=== PATIENT | female | born 1985 | race Caucasian/White ===

== ENCOUNTER 2021-07-18 02:05 | Emergency (ER) | payer BC, SELFPAY ==
[2021-07-18 02:08] VITALS: BP 145/83; PULSE 73; RESP 15; TEMP 36.6; O2SAT 99; BMI 40.7
--- NOTE | 2021-07-18 02:13 | DI.RAD.S_ITS ---
PROCEDURE: XR CHEST 1V INDICATIONS: Shortness of breath TECHNIQUE: One view of the chest was acquired. COMPARISON: None. FINDINGS: Surgical changes and devices: None. Lungs and pleura: Lungs are clear. No pleural effusions or pneumothorax. Mediastinum: Mediastinal contours appear normal. Heart size is normal. Bones and chest wall: No suspicious bony lesions. Overlying soft tissues appear unremarkable. IMPRESSION: No acute cardiopulmonary disease process. Dictated by: Nadine Calhoun MD, PhD on 07/18/2021 at 8:41 Approved by: Nadine Calhoun MD, PhD on 07/18/2021 at 8:41
--- NOTE | 2021-07-18 02:15 | ED.GENADULT ---
HPI - General Adult General Chief complaint: Upper Respiratory Symptoms Stated complaint: shortness of breath Time Seen by Provider: 07/18/21 02:06 Source: patient Mode of arrival: EMS History of Present Illness HPI narrative: Patient is a 35-year-old female. She states that over the weekend she had diarrhea and nausea and vomiting. It seems to have improved and she has been tolerating oral intake but she has also now developed some shortness of breath and feeling ?out of it ?and some chest discomfort. No abdominal pain. She also endorses fevers. Related Data Home Medications Medication Instructions Recorded Confirmed levothyroxine 50 mcg tablet 50 mcg PO DAILY 06/01/18 06/01/18 levothyroxine 50 mcg tablet 100 mcg PO DAILY 06/01/18 06/01/18 Previous Rx's Medication Instructions Recorded azithromycin 250 mg tablet See Rx Instructions PO .COMPLEX #6 06/01/18 tab Allergies Allergy/AdvReac Type Severity Reaction Status Date / Time No Known Drug Allergies Allergy Verified 07/18/21 02:12 Review of Systems Constitutional Constitutional: Reports as per HPI Cardiovascular Cardiovascular: Reports as per HPI and Reports system reviewed and no additional complaints, except as documented Respiratory Respiratory: Reports as per HPI and Reports system reviewed and no additional complaints, except as documented Gastrointestinal Gastrointestinal: Reports as per HPI and Reports system reviewed and no additional complaints, except as documented Integumentary/Breasts Skin/Breast: Reports system reviewed and no additional complaints, except as documented Neurologic Neurologic: Reports system reviewed and no additional complaints, except as documented Hematologic/Lymphatic On Anticoagulants: No Patient History Medical History Hypothyroidism Social History Smoking Status: Never smoker Smoking Status: Never smoker alcohol intake frequency: 0-2 drinks per day Exam Initial Vital Signs Initial Vital Signs: Vital Signs Temperature 97.8 F 07/18/21 02:08 Pulse Rate 73 07/18/21 02:08 Respiratory Rate 15 07/18/21 02:08 Blood Pressure 145/83 H 07/18/21 02:08 Pulse Oximetry 99 07/18/21 02:08 HENMT Head: normal to inspection and normocephalic Resp Effort & Inspection: normal respiratory effort Auscultation: clear to auscultation bilaterally Cardio Rate: regular rate Rhythm: regular rhythm GI Inspection: normal to inspection Skin General: no rashes or lesions noted Neuro General: patient alert, patient awake and patient oriented x3 Extrem General: normal to inspection and capillary refill normal Psych Appearance: grossly normal and well kempt Course Orders Ordered: ED Orders 07/18/21 02:08 COVID19 -Nasal swab/Pre-Proc Stat 07/18/21 02:13 XR chest 1V Stat EKG-12 Lead Stat 07/18/21 02:45 Basic Metabolic Panel Stat Complete Blood Count AUTO DIFF Stat Test Serum,Qual Stat Thyroid Stimulating Hormone Stat Discontinued Medications Sodium Chloride (Normal Saline 0.9%) 1,000 mls @ 1,000 mls/hr IV BOLUS ONE Stop: 07/18/21 03:11 Last Admin: 07/18/21 02:51 Dose: 1,000 mls/hr Documented by: NICOLETTE Vital Signs Vital signs: Vital Signs - 8 hr 07/18/21 02:08 Temperature 97.8 F Pulse Rate 73 Respiratory Rate 15 Blood Pressure 145/83 H Pulse Oximetry 99 Medical Decision Making Lab Data Lab results reviewed: Yes I reviewed the patient's lab results. Result diagrams: 07/18/21 02:45 07/18/21 02:45 Labs: Lab Results 07/18/21 07/18/21 07/18/21 Range/Units 02:08 02:45 02:45 WBC 7.2 (4.5-11.0) X10^3/uL RBC 5.06 (4.0-5.2) X10^6/uL Hgb 14.2 (12.0-16.0) g/dL Hct 41.9 (36-46) % MCV 82.8 (80-100) fL MCH 28.1 (26-34) PG MCHC 33.9 (30-36) % RDW 13.7 (11.6-14.8) % Plt Count 272 (150-400) X10^3/uL Neut % (Auto) 71.3 (50-75) % Lymph % (Auto) 17.8 L (25-40) % [place] % (Auto) 9.9 (3-14) % Eos % (Auto) 0.7 L (2-4) % Baso % (Auto) 0.3 (0-2) % Neut # (Auto) 5100 (1478-0498) /uL Lymph # (Auto) 1300 (6479-6491) /uL [place] # (Auto) 700 (0-900) /uL Eos # (Auto) 0 (0-450) /uL Baso # (Auto) 0 (0-100) /uL Sodium 137 (137-145) mmol/L Potassium 3.5 (3.4-5.1) mmol/L Chloride 106 (98-107) mmol/L Carbon Dioxide 25 (22-32) mmol/L BUN 7 (7-17) mg/dL Creatinine 0.71 (0.52-1.04) mg/dL Estimated GFR > 60.0 (>60) mL/min BUN/Creatinine Ratio 9.9 (6-22) Glucose 117 H (70-100) mg/dL Calcium 9.2 (8.4-10.2) mg/dL TSH (0.47-4.68) uIU/mL Serum , Qual (Negative) SARS-CoV-2 (PCR) Negative (Negative) 07/18/21 07/18/21 Range/Units 02:45 02:45 WBC (4.5-11.0) X10^3/uL RBC (4.0-5.2) X10^6/uL Hgb (12.0-16.0) g/dL Hct (36-46) % MCV (80-100) fL MCH (26-34) PG MCHC (30-36) % RDW (11.6-14.8) % Plt Count (150-400) X10^3/uL Neut % (Auto) (50-75) % Lymph % (Auto) (25-40) % [place] % (Auto) (3-14) % Eos % (Auto) (2-4) % Baso % (Auto) (0-2) % Neut # (Auto) (3964-4867) /uL Lymph # (Auto) (5350-6475) /uL [place] # (Auto) (0-900) /uL Eos # (Auto) (0-450) /uL Baso # (Auto) (0-100) /uL Sodium (137-145) mmol/L Potassium (3.4-5.1) mmol/L Chloride (98-107) mmol/L Carbon Dioxide (22-32) mmol/L BUN (7-17) mg/dL Creatinine (0.52-1.04) mg/dL Estimated GFR (>60) mL/min BUN/Creatinine Ratio (6-22) Glucose (70-100) mg/dL Calcium (8.4-10.2) mg/dL TSH 4.16 (0.47-4.68) uIU/mL Serum , Qual Negative (Negative) SARS-CoV-2 (PCR) (Negative) Imaging Data Chest x-ray: Radiologist's Impression: No acute cardiopulmonary findings ECG Data Attestation: I personally reviewed and interpreted this ECG as follows: Interpretation: Sinus rhythm Ventricular rate of 77 Normal axis Normal QRS Normal QTC No ST T wave changes MDM Narrative Medical decision making narrative: Nontoxic, normal vital signs, unremarkable labs, chest x-ray is unremarkable, EKG is unremarkable, low suspicion for CVA/PE/TIA/ACS was given fluids. No indication for antibiotics. No signs of pneumonia. Will discharge home with instructions to continue to take Tylenol and ibuprofen stay hydrated and contact her primary provider for follow-up. Discharge Plan Departure Patient Disposition: Home Clinical Impression: Shortness of breath Instructions: DI for Nausea -- Adult Activity Restrictions/Additional Instructions: Your workup here in the emergency department to include labs and chest x-ray and EKG are all very reassuring. Be sure to increase your fluid intake an contact your primary provider for follow-up. Return to the emergency department for any new or worsening symptoms. Prescriptions: No Action levothyroxine 50 mcg tablet 100 mcg PO DAILY 0RF Label Comments: 2 Tabs Fri and Wed. levothyroxine 50 mcg tablet 50 mcg PO DAILY 0RF Label Comments: 1 tab Sat, Mon, Tues, Thurs, and Fri. azithromycin 250 mg tablet See Rx Instructions PO .COMPLEX Qty: 6 0RF Rx Instructions: take 500 mg today (day 1), then 250 mg for 4 days (days 2-5)
[2021-07-18 02:32] LABS: COVID19 -Nasal RAPID Negative (Negative)
[2021-07-18] MEDS: SODIUM CHLORIDE 0.9% 1,000 ML 1000 ML IV (02:51)
[2021-07-18 03:02] LABS: Add Manual Diff / Slide Review NO; Basophils Absolute Auto 0 /uL (0-100); Basophils Percent Auto 0.3 % (0-2); Eosinophils Absolute Auto 0 /uL (0-450); Eosinophils Percent Auto 0.7 % (2-4); Hematocrit 41.9 % (36-46); Hemoglobin 14.2 g/dL (12.0-16.0); Lymphocytes Absolute Auto 1300 /uL (1100-4500); Lymphocytes Percent Auto 17.8 % (25-40); Mean Corpuscular HGB Conc 33.9 % (30-36); Mean Corpuscular Hemoglobin 28.1 PG (26-34); Mean Corpuscular Volume 82.8 fL (80-100); Monocytes Absolute Auto 700 /uL (0-900); Monocytes Percent Auto 9.9 % (3-14); Neutrophils Absolute Auto 5100 /uL (1500-7000); Neutrophils Percent Auto 71.3 % (50-75); Platelet Count 272 X10^3/uL (150-400); Red Blood Cell Count 5.06 X10^6/uL (4.0-5.2); Red Cell Distribution Width 13.7 % (11.6-14.8); White Blood Cell Count 7.2 X10^3/uL (4.5-11.0)
[2021-07-18 03:03] LABS: BUN Creatinine Ratio 9.9 (6-22); Blood Urea Nitrogen 7 mg/dL (7-17); Calcium 9.2 mg/dL (8.4-10.2); Carbon Dioxide 25 mmol/L (22-32); Chloride 106 mmol/L (98-107); Estimated Glomerular Filt Rate > 60.0 mL/min (>60); Glucose 117 mg/dL (70-100); HEMOLYSIS < 15 (0-50); Potassium 3.5 mmol/L (3.4-5.1); Sodium 137 mmol/L (137-145)
[2021-07-18 03:14] LABS: Pregnancy Test Serum,Qual Negative (Negative)
[2021-07-18 03:47] LABS: Thyroid Stimulating Hormone 4.16 uIU/mL (0.47-4.68)
[2021-07-18 04:20] VITALS: BP 142/80; PULSE 83; RESP 15; O2SAT 98
== END 2021-07-18 04:21 | disposition home or self-care (01) ==
PROVIDERS: Emergency Provider Emergency Medicine
DX: R06.02 Shortness of breath (principal); R19.7 Diarrhea, unspecified; R11.2 Nausea with vomiting, unspecified; R03.0 Elevated blood-pressure reading, without diagnosis of hypertension; Z20.822 Contact with and (suspected) exposure to COVID-19
CPT/HCPCS: 36415; 71045; 80048; 84443; 84703; 85025; 87635; 93005; 93010; 96360; 99284; C9803

== ENCOUNTER → 2021-08-05 14:24 | Outpatient (CLI) | payer BC, SELFPAY | PROVIDERS: Referring Provider Nurse Practitioner Critical Care Medicine; Visit Provider Nurse Practitioner Critical Care Medicine | DX: N39.0 Urinary tract infection, site not specified (principal) | CPT/HCPCS: 87086 ==